=== PATIENT | male | born 1990 | race Caucasian/White ===

== ENCOUNTER 2017-01-11 20:49 | Inpatient (IN) ==
[2017-01-11 21:18] LABS: Basophils % 0.4 %; Eosinophils % 0.1 %; Monocytes % 4.1 %; Segmented Neutrophils % 87.9 %
[2017-01-11 21:19] LABS: Basophils # 0.2 K/mcL (0.0-0.2); Eosinophils # 0.1 K/mcL (0.0-0.6); Hematocrit 47.7 % (37.5-50.1); Hemoglobin 15.5 g/dL (12.9-16.9); Immature Granulocytes % 2.3 % (0-4); Lymphocytes # 2.7 K/mcL (0.6-4.6); Lymphocytes % 5.2 %; Mean Corpuscular HGB Conc 32.5 g/dL (31.6-35.5); Mean Corpuscular Hemoglobin 29.9 pg (28.0-33.3); Mean Corpuscular Volume 91.9 fL (83.0-100.0); Mean Platelet Volume 11.4 fL (9.4-12.4); Platelet Count 344 K/mcL (140-400); Red Blood Count 5.19 M/mcL (4.19-5.50); Red Cell Distribution Width 13.8 % (11.5-14.5)
[2017-01-11] MEDS ORDERED: 0.9 % Sodium Chloride 1,000 ML IVC ONE (21:22)
[2017-01-11 21:34] LABS: Alanine Aminotransferase 32 Units/L (0-55); Albumin 4.4 g/dL (3.5-5.0); Alkaline Phosphatase 73 Units/L (38-126); Aspartate Amino Transferase 25 Units/L (5-34); BUN/Creatinine Ratio 10 (6-26); Bilirubin,Direct 0.1 mg/dL (0.0-0.5); Bilirubin,Indirect 0.1 mg/dL (0.0-1.2); Bilirubin,Total 0.2 mg/dL (0.2-1.2); Blood Urea Nitrogen 19 mg/dL (8-26); Calcium 8.9 mg/dL (8.6-10.8); Carbon Dioxide 19 mEq/L (19-29); Chloride 100 mEq/L (98-109); Globulin 4.5 g/dL (2.4-3.5); Glucose 304 mg/dL (70-99); Osmolality,Calculated 304 (280-300); Potassium 4.3 mEq/L (3.5-4.5); Sodium 140 mEq/L (136-145); Total Protein 8.9 g/dL (6.0-8.3); eGFR For African Americans 52 (> 60); eGFR For Non-African Americans 43 (> 60)
[2017-01-11 21:35] LABS: Acetaminophen < 1.0 mcg/mL (10-30); Ethanol < 10 mg/dL (0-10); Monocytes # 2.1 K/mcL (0.0-1.3); Salicylate < 5.0 mg/dL (15-30)
--- NOTE | 2017-01-11 21:44 | Emergency Department Note ---
Overdose - Medical Records Medical records reviewed: Yes I reviewed the patient's medical records. - Lab Data Lab results reviewed: Yes I reviewed the patient's lab results. Result diagrams: 01/13/17 07:37 01/13/17 07:37 Lab Results 01/11/17 01/11/17 01/11/17 Range/Units 21:08 21:08 21:08 WBC 52.3 H* (4.3-11.1) K/mcL RBC 5.19 (4.19-5.50) M/mcL Hgb 15.5 (12.9-16.9) g/dL Hct 47.7 (37.5-50.1) % MCV 91.9 (83.0-100.0) fL MCH 29.9 (28.0-33.3) pg MCHC 32.5 (31.6-35.5) g/dL RDW 13.8 (11.5-14.5) % Plt Count 344 (140-400) K/mcL MPV 11.4 (9.4-12.4) fL Immature Gran % 2.3 (0-4) % Seg Neutrophils % 87.9 % Lymphocytes % 5.2 % Monocytes % 4.1 % Eosinophils % 0.1 % Basophils % 0.4 % Neutrophils # 46.0 H (1.6-8.9) K/mcL Lymphocytes # 2.7 (0.6-4.6) K/mcL Monocytes # 2.1 H (0.0-1.3) K/mcL Eosinophils # 0.1 (0.0-0.6) K/mcL Basophils # 0.2 (0.0-0.2) K/mcL Platelet Estimate (Normal) PT (9.4-12.1) Seconds INR APTT (26.0-36.0) Seconds Sodium 140 (136-145) mEq/L Potassium 4.3 (3.5-4.5) mEq/L Chloride 100 (98-109) mEq/L Carbon Dioxide 19 (19-29) mEq/L BUN 19 (8-26) mg/dL Creatinine 1.87 H (0.72-1.25) mg/dL Est GFR ( Amer) 52 L (> 60) Est GFR (Non-Af Amer) 43 L (> 60) BUN/Creatinine Ratio 10 (6-26) Glucose 304 H (70-99) mg/dL POC Glucose (58-89) Calculated Osmolality 304 H (280-300) Lactic Acid (0.5-2.2) mmol/L Calcium 8.9 (8.6-10.8) mg/dL Magnesium (1.6-2.6) mg/dL Total Bilirubin 0.2 (0.2-1.2) mg/dL Direct Bilirubin 0.1 (0.0-0.5) mg/dL Indirect Bilirubin 0.1 (0.0-1.2) mg/dL AST 25 (5-34) Units/L ALT 32 (0-55) Units/L Alkaline Phosphatase 73 (38-126) Units/L Creatine Kinase (30-200) Units/L Troponin I 0.10 H* (0-0.03) ng/mL Serum Total Protein 8.9 H (6.0-8.3) g/dL Albumin 4.4 (3.5-5.0) g/dL Globulin 4.5 H (2.4-3.5) g/dL Albumin/Globulin Ratio 1.0 L (1.1-2.2) Triglycerides (< 150) mg/dL Cholesterol (< 200) mg/dL LDL Cholesterol, Calc (0-99) mg/dL VLDL Cholesterol, Calc (< 31) mg/dL HDL Cholesterol (40-59) mg/dL Cholesterol/HDL Ratio (0-4.9) Urine Color (Yellow) Urine Clarity (Clear) Urine pH (5.0-8.0) pH Units Ur Specific Epes (1.010-1.025) Urine Protein (Neg-Trace) mg/dL Urine Glucose (UA) (Normal) mg/dL Urine Ketones (Negative) mg/dL Urine Blood (Negative) Urine Nitrite (Negative) Urine Bilirubin (Negative) Urine Urobilinogen (Normal) mg/dL Ur Leukocyte Esterase (Negative) Salicylates < 5.0 L (15-30) mg/dL Urine Opiates Screen (Tcncmn=234) ng/mL Acetaminophen < 1.0 L (10-30) mcg/mL Ur Barbiturates Screen (Rkssam=944) ng/mL Ur Phencyclidine Scrn (Cutoff=25) ng/mL Ur Amphetamines Screen (Llfjyd=3356) ng/mL U Benzodiazepines Scrn (Xicszs=935) ng/mL Urine Cocaine Screen (Cutoff= 300) ng/mL U Marijuana (THC) Screen (Cutoff = 50) ng/mL Ethyl Alcohol < 10 (0-10) mg/dL 01/11/17 01/11/17 01/11/17 Range/Units 21:08 21:35 21:54 WBC (4.3-11.1) K/mcL RBC (4.19-5.50) M/mcL Hgb (12.9-16.9) g/dL Hct (37.5-50.1) % MCV (83.0-100.0) fL MCH (28.0-33.3) pg MCHC (31.6-35.5) g/dL RDW (11.5-14.5) % Plt Count (140-400) K/mcL MPV (9.4-12.4) fL Immature Gran % (0-4) % Seg Neutrophils % % Lymphocytes % % Monocytes % % Eosinophils % % Basophils % % Neutrophils # (1.6-8.9) K/mcL Lymphocytes # (0.6-4.6) K/mcL Monocytes # (0.0-1.3) K/mcL Eosinophils # (0.0-0.6) K/mcL Basophils # (0.0-0.2) K/mcL Platelet Estimate (Normal) PT (9.4-12.1) Seconds INR APTT (26.0-36.0) Seconds Sodium (136-145) mEq/L Potassium (3.5-4.5) mEq/L Chloride (98-109) mEq/L Carbon Dioxide (19-29) mEq/L BUN (8-26) mg/dL Creatinine (0.72-1.25) mg/dL Est GFR ( Amer) (> 60) Est GFR (Non-Af Amer) (> 60) BUN/Creatinine Ratio (6-26) Glucose (70-99) mg/dL POC Glucose 238 H 178 H (58-89) Calculated Osmolality (280-300) Lactic Acid (0.5-2.2) mmol/L Calcium (8.6-10.8) mg/dL Magnesium (1.6-2.6) mg/dL Total Bilirubin (0.2-1.2) mg/dL Direct Bilirubin (0.0-0.5) mg/dL Indirect Bilirubin (0.0-1.2) mg/dL AST (5-34) Units/L ALT (0-55) Units/L Alkaline Phosphatase (38-126) Units/L Creatine Kinase 129 (30-200) Units/L Troponin I (0-0.03) ng/mL Serum Total Protein (6.0-8.3) g/dL Albumin (3.5-5.0) g/dL Globulin (2.4-3.5) g/dL Albumin/Globulin Ratio (1.1-2.2) Triglycerides (< 150) mg/dL Cholesterol (< 200) mg/dL LDL Cholesterol, Calc (0-99) mg/dL VLDL Cholesterol, Calc (< 31) mg/dL HDL Cholesterol (40-59) mg/dL Cholesterol/HDL Ratio (0-4.9) Urine Color (Yellow) Urine Clarity (Clear) Urine pH (5.0-8.0) pH Units Ur Specific Epes (1.010-1.025) Urine Protein (Neg-Trace) mg/dL Urine Glucose (UA) (Normal) mg/dL Urine Ketones (Negative) mg/dL Urine Blood (Negative) Urine Nitrite (Negative) Urine Bilirubin (Negative) Urine Urobilinogen (Normal) mg/dL Ur Leukocyte Esterase (Negative) Salicylates (15-30) mg/dL Urine Opiates Screen (Yfoghi=559) ng/mL Acetaminophen (10-30) mcg/mL Ur Barbiturates Screen (Aicgqn=517) ng/mL Ur Phencyclidine Scrn (Cutoff=25) ng/mL Ur Amphetamines Screen (Ztzyot=2567) ng/mL U Benzodiazepines Scrn (Xtzpsj=361) ng/mL Urine Cocaine Screen (Cutoff= 300) ng/mL U Marijuana (THC) Screen (Cutoff = 50) ng/mL Ethyl Alcohol (0-10) mg/dL 01/11/17 01/11/17 01/11/17 Range/Units 22:43 23:09 23:13 WBC (4.3-11.1) K/mcL RBC (4.19-5.50) M/mcL Hgb (12.9-16.9) g/dL Hct (37.5-50.1) % MCV (83.0-100.0) fL MCH (28.0-33.3) pg MCHC (31.6-35.5) g/dL RDW (11.5-14.5) % Plt Count (140-400) K/mcL MPV (9.4-12.4) fL Immature Gran % (0-4) % Seg Neutrophils % % Lymphocytes % % Monocytes % % Eosinophils % % Basophils % % Neutrophils # (1.6-8.9) K/mcL Lymphocytes # (0.6-4.6) K/mcL Monocytes # (0.0-1.3) K/mcL Eosinophils # (0.0-0.6) K/mcL Basophils # (0.0-0.2) K/mcL Platelet Estimate (Normal) PT (9.4-12.1) Seconds INR APTT (26.0-36.0) Seconds Sodium (136-145) mEq/L Potassium (3.5-4.5) mEq/L Chloride (98-109) mEq/L Carbon Dioxide (19-29) mEq/L BUN (8-26) mg/dL Creatinine (0.72-1.25) mg/dL Est GFR ( Amer) (> 60) Est GFR (Non-Af Amer) (> 60) BUN/Creatinine Ratio (6-26) Glucose (70-99) mg/dL POC Glucose 125 H 113 H (58-89) Calculated Osmolality (280-300) Lactic Acid 3.4 H (0.5-2.2) mmol/L Calcium (8.6-10.8) mg/dL Magnesium (1.6-2.6) mg/dL Total Bilirubin (0.2-1.2) mg/dL Direct Bilirubin (0.0-0.5) mg/dL Indirect Bilirubin (0.0-1.2) mg/dL AST (5-34) Units/L ALT (0-55) Units/L Alkaline Phosphatase (38-126) Units/L Creatine Kinase (30-200) Units/L Troponin I (0-0.03) ng/mL Serum Total Protein (6.0-8.3) g/dL Albumin (3.5-5.0) g/dL Globulin (2.4-3.5) g/dL Albumin/Globulin Ratio (1.1-2.2) Triglycerides (< 150) mg/dL Cholesterol (< 200) mg/dL LDL Cholesterol, Calc (0-99) mg/dL VLDL Cholesterol, Calc (< 31) mg/dL HDL Cholesterol (40-59) mg/dL Cholesterol/HDL Ratio (0-4.9) Urine Color (Yellow) Urine Clarity (Clear) Urine pH (5.0-8.0) pH Units Ur Specific Epes (1.010-1.025) Urine Protein (Neg-Trace) mg/dL Urine Glucose (UA) (Normal) mg/dL Urine Ketones (Negative) mg/dL Urine Blood (Negative) Urine Nitrite (Negative) Urine Bilirubin (Negative) Urine Urobilinogen (Normal) mg/dL Ur Leukocyte Esterase (Negative) Salicylates (15-30) mg/dL Urine Opiates Screen (Zgseul=287) ng/mL Acetaminophen (10-30) mcg/mL Ur Barbiturates Screen (Gaetlk=124) ng/mL Ur Phencyclidine Scrn (Cutoff=25) ng/mL Ur Amphetamines Screen (Gnfsvx=9949) ng/mL U Benzodiazepines Scrn (Yxrtcg=787) ng/mL Urine Cocaine Screen (Cutoff= 300) ng/mL U Marijuana (THC) Screen (Cutoff = 50) ng/mL Ethyl Alcohol (0-10) mg/dL 01/12/17 01/12/17 01/12/17 Range/Units 03:12 03:12 03:12 WBC 25.9 H D (4.3-11.1) K/mcL RBC 4.83 (4.19-5.50) M/mcL Hgb 14.1 (12.9-16.9) g/dL Hct 43.2 (37.5-50.1) % MCV 89.4 (83.0-100.0) fL MCH 29.2 (28.0-33.3) pg MCHC 32.6 (31.6-35.5) g/dL RDW 13.6 (11.5-14.5) % Plt Count 311 (140-400) K/mcL MPV 11.5 (9.4-12.4) fL Immature Gran % 0.6 (0-4) % Seg Neutrophils % 85.1 % Lymphocytes % 6.4 % Monocytes % 7.7 % Eosinophils % 0.0 % Basophils % 0.2 % Neutrophils # 22.0 H (1.6-8.9) K/mcL Lymphocytes # 1.7 (0.6-4.6) K/mcL Monocytes # 2.0 H (0.0-1.3) K/mcL Eosinophils # 0.0 (0.0-0.6) K/mcL Basophils # 0.1 (0.0-0.2) K/mcL Platelet Estimate Normal (Normal) PT (9.4-12.1) Seconds INR APTT (26.0-36.0) Seconds Sodium (136-145) mEq/L Potassium (3.5-4.5) mEq/L Chloride (98-109) mEq/L Carbon Dioxide (19-29) mEq/L BUN (8-26) mg/dL Creatinine (0.72-1.25) mg/dL Est GFR ( Amer) (> 60) Est GFR (Non-Af Amer) (> 60) BUN/Creatinine Ratio (6-26) Glucose (70-99) mg/dL POC Glucose (58-89) Calculated Osmolality (280-300) Lactic Acid 1.5 (0.5-2.2) mmol/L Calcium (8.6-10.8) mg/dL Magnesium (1.6-2.6) mg/dL Total Bilirubin (0.2-1.2) mg/dL Direct Bilirubin (0.0-0.5) mg/dL Indirect Bilirubin (0.0-1.2) mg/dL AST (5-34) Units/L ALT (0-55) Units/L Alkaline Phosphatase (38-126) Units/L Creatine Kinase (30-200) Units/L Troponin I 0.70 H* (0-0.03) ng/mL Serum Total Protein (6.0-8.3) g/dL Albumin (3.5-5.0) g/dL Globulin (2.4-3.5) g/dL Albumin/Globulin Ratio (1.1-2.2) Triglycerides (< 150) mg/dL Cholesterol (< 200) mg/dL LDL Cholesterol, Calc (0-99) mg/dL VLDL Cholesterol, Calc (< 31) mg/dL HDL Cholesterol (40-59) mg/dL Cholesterol/HDL Ratio (0-4.9) Urine Color (Yellow) Urine Clarity (Clear) Urine pH (5.0-8.0) pH Units Ur Specific Epes (1.010-1.025) Urine Protein (Neg-Trace) mg/dL Urine Glucose (UA) (Normal) mg/dL Urine Ketones (Negative) mg/dL Urine Blood (Negative) Urine Nitrite (Negative) Urine Bilirubin (Negative) Urine Urobilinogen (Normal) mg/dL Ur Leukocyte Esterase (Negative) Salicylates (15-30) mg/dL Urine Opiates Screen (Scluhb=633) ng/mL Acetaminophen (10-30) mcg/mL Ur Barbiturates Screen (Cwxfkf=395) ng/mL Ur Phencyclidine Scrn (Cutoff=25) ng/mL Ur Amphetamines Screen (Ykkzar=7172) ng/mL U Benzodiazepines Scrn (Dfhyem=468) ng/mL Urine Cocaine Screen (Cutoff= 300) ng/mL U Marijuana (THC) Screen (Cutoff = 50) ng/mL Ethyl Alcohol (0-10) mg/dL 01/12/17 01/12/17 01/12/17 Range/Units 03:12 03:12 07:01 WBC (4.3-11.1) K/mcL RBC (4.19-5.50) M/mcL Hgb (12.9-16.9) g/dL Hct (37.5-50.1) % MCV (83.0-100.0) fL MCH (28.0-33.3) pg MCHC (31.6-35.5) g/dL RDW (11.5-14.5) % Plt Count (140-400) K/mcL MPV (9.4-12.4) fL Immature Gran % (0-4) % Seg Neutrophils % % Lymphocytes % % Monocytes % % Eosinophils % % Basophils % % Neutrophils # (1.6-8.9) K/mcL Lymphocytes # (0.6-4.6) K/mcL Monocytes # (0.0-1.3) K/mcL Eosinophils # (0.0-0.6) K/mcL Basophils # (0.0-0.2) K/mcL Platelet Estimate (Normal) PT 12.3 H (9.4-12.1) Seconds INR 1.1 APTT 26.6 (26.0-36.0) Seconds Sodium 135 L (136-145) mEq/L Potassium 4.8 H (3.5-4.5) mEq/L Chloride 101 (98-109) mEq/L Carbon Dioxide 25 (19-29) mEq/L BUN 18 (8-26) mg/dL Creatinine 1.18 (0.72-1.25) mg/dL Est GFR ( Amer) > 60 (> 60) Est GFR (Non-Af Amer) > 60 (> 60) BUN/Creatinine Ratio 15 (6-26) Glucose 96 (70-99) mg/dL POC Glucose (58-89) Calculated Osmolality 282 (280-300) Lactic Acid (0.5-2.2) mmol/L Calcium 8.7 (8.6-10.8) mg/dL Magnesium 1.6 (1.6-2.6) mg/dL Total Bilirubin 0.4 (0.2-1.2) mg/dL Direct Bilirubin (0.0-0.5) mg/dL Indirect Bilirubin (0.0-1.2) mg/dL AST 23 (5-34) Units/L ALT 27 (0-55) Units/L Alkaline Phosphatase 59 (38-126) Units/L Creatine Kinase (30-200) Units/L Troponin I (0-0.03) ng/mL Serum Total Protein 7.9 (6.0-8.3) g/dL Albumin 4.2 (3.5-5.0) g/dL Globulin 3.7 H (2.4-3.5) g/dL Albumin/Globulin Ratio 1.1 (1.1-2.2) Triglycerides 46 (< 150) mg/dL Cholesterol 173 (< 200) mg/dL LDL Cholesterol, Calc 112 H (0-99) mg/dL VLDL Cholesterol, Calc 9 (< 31) mg/dL HDL Cholesterol 52 (40-59) mg/dL Cholesterol/HDL Ratio 3.3 (0-4.9) Urine Color Yellow (Yellow) Urine Clarity Clear (Clear) Urine pH 6.0 (5.0-8.0) pH Units Ur Specific Epes 1.015 (1.010-1.025) Urine Protein Negative (Neg-Trace) mg/dL Urine Glucose (UA) Normal (Normal) mg/dL Urine Ketones Negative (Negative) mg/dL Urine Blood Negative (Negative) Urine Nitrite Negative (Negative) Urine Bilirubin Negative (Negative) Urine Urobilinogen Normal (Normal) mg/dL Ur Leukocyte Esterase Negative (Negative) Salicylates (15-30) mg/dL Urine Opiates Screen (Ddllhb=744) ng/mL Acetaminophen (10-30) mcg/mL Ur Barbiturates Screen (Jxvrlq=488) ng/mL Ur Phencyclidine Scrn (Cutoff=25) ng/mL Ur Amphetamines Screen (Wgeqrt=4388) ng/mL U Benzodiazepines Scrn (Sgkvur=626) ng/mL Urine Cocaine Screen (Cutoff= 300) ng/mL U Marijuana (THC) Screen (Cutoff = 50) ng/mL Ethyl Alcohol (0-10) mg/dL 01/12/17 01/12/17 Range/Units 07:01 08:43 WBC (4.3-11.1) K/mcL RBC (4.19-5.50) M/mcL Hgb (12.9-16.9) g/dL Hct (37.5-50.1) % MCV (83.0-100.0) fL MCH (28.0-33.3) pg MCHC (31.6-35.5) g/dL RDW (11.5-14.5) % Plt Count (140-400) K/mcL MPV (9.4-12.4) fL Immature Gran % (0-4) % Seg Neutrophils % % Lymphocytes % % Monocytes % % Eosinophils % % Basophils % % Neutrophils # (1.6-8.9) K/mcL Lymphocytes # (0.6-4.6) K/mcL Monocytes # (0.0-1.3) K/mcL Eosinophils # (0.0-0.6) K/mcL Basophils # (0.0-0.2) K/mcL Platelet Estimate (Normal) PT (9.4-12.1) Seconds INR APTT (26.0-36.0) Seconds Sodium (136-145) mEq/L Potassium (3.5-4.5) mEq/L Chloride (98-109) mEq/L Carbon Dioxide (19-29) mEq/L BUN (8-26) mg/dL Creatinine (0.72-1.25) mg/dL Est GFR ( Amer) (> 60) Est GFR (Non-Af Amer) (> 60) BUN/Creatinine Ratio (6-26) Glucose (70-99) mg/dL POC Glucose (58-89) Calculated Osmolality (280-300) Lactic Acid (0.5-2.2) mmol/L Calcium (8.6-10.8) mg/dL Magnesium (1.6-2.6) mg/dL Total Bilirubin (0.2-1.2) mg/dL Direct Bilirubin (0.0-0.5) mg/dL Indirect Bilirubin (0.0-1.2) mg/dL AST (5-34) Units/L ALT (0-55) Units/L Alkaline Phosphatase (38-126) Units/L Creatine Kinase (30-200) Units/L Troponin I 1.03 H* (0-0.03) ng/mL Serum Total Protein (6.0-8.3) g/dL Albumin (3.5-5.0) g/dL Globulin (2.4-3.5) g/dL Albumin/Globulin Ratio (1.1-2.2) Triglycerides (< 150) mg/dL Cholesterol (< 200) mg/dL LDL Cholesterol, Calc (0-99) mg/dL VLDL Cholesterol, Calc (< 31) mg/dL HDL Cholesterol (40-59) mg/dL Cholesterol/HDL Ratio (0-4.9) Urine Color (Yellow) Urine Clarity (Clear) Urine pH (5.0-8.0) pH Units Ur Specific Epes (1.010-1.025) Urine Protein (Neg-Trace) mg/dL Urine Glucose (UA) (Normal) mg/dL Urine Ketones (Negative) mg/dL Urine Blood (Negative) Urine Nitrite (Negative) Urine Bilirubin (Negative) Urine Urobilinogen (Normal) mg/dL Ur Leukocyte Esterase (Negative) Salicylates (15-30) mg/dL Urine Opiates Screen Negative (Omvpzm=977) ng/mL Acetaminophen (10-30) mcg/mL Ur Barbiturates Screen Negative (Uywxcp=044) ng/mL Ur Phencyclidine Scrn Negative (Cutoff=25) ng/mL Ur Amphetamines Screen Negative (Aewkbe=3650) ng/mL U Benzodiazepines Scrn Negative (Gwgwyr=313) ng/mL Urine Cocaine Screen Negative (Cutoff= 300) ng/mL U Marijuana (THC) Screen Negative (Cutoff = 50) ng/mL Ethyl Alcohol (0-10) mg/dL - Radiology Data Radiology results reviewed: Yes I reviewed the patient's radiology results. Chest X-Ray 01/11/17 20:55 IMPRESSION: Ill-defined right infrahilar opacity may reflect mild edema, atypical infection, or sequela of aspiration given history of overdose. D/ / Eusebio Dunne MD / Eusebio Dunne MD Interpreting Provider: Eusebio Dunne MD - EKG Data EKG attestation: Yes I reviewed and interpreted this EKG. EKG results narrative: EKG done at 2126 shows sinus tachycardia with a rate of [address] elevation or depression. Inverted T wave in lead 3. Normal axis. Overdose HPI - General Chief Complaint: ED Overdose Stated Complaint: Heroin Overdose Time Seen by Provider: 01/11/17 20:54 Source: EMS Mode of arrival: ambulatory Limitations: no limitations Nursing Notes Reviewed: Yes Vital Signs Reviewed: Yes - History of Present Illness HPI Narrative: Patient is a 26-year-old male who presents to [facility] ED status post overdose on heroin. He was given 4 mg of intranasal Narcan as well as 2 mg IV of Narcan. He presents awake and alert. States this is his second time using. Denies any other medical problems. Patient is having some difficulty with breathing. Has harsh breath sounds bilaterally. Concern for aspiration. Patient denies using any other drugs this evening. Pt Subjective Complaint: accidental overdose Onset (ago): [employer] Intent: accidental Treatments Prior to Arrival: narcan - Related Data Previous Rx's Medication Instructions Recorded Levofloxacin [Levaquin] 750 mg PO DAILY #5 tablet 01/13/17 Meloxicam 15 mg PO DAILY PRN #20 tablet 01/13/17 MetroNIDAZOLE [Flagyl] 500 mg PO TID #17 tablet 01/13/17 Allergies Allergy/AdvReac Type Severity Reaction Status Date / Time Penicillins Allergy See Verified 01/11/17 21:40 Comments All systems ED: reviewed and negative except as stated. Past Medical History - Past Medical History Attestation: Yes The following information was validated with the patient. Source: patient Medical history: Reports: no medical history Psychiatric history: Reports: ADHD - Social History Smoking Status: Light tobacco smoker Smokeless Tobacco Status: No Alcohol use: Reports: occasionally Drug use: Reports: cocaine, opiates Physical Exam - General Limitations: no limitations General appearance: alert - Head Head exam: atraumatic, normocephalic, normal inspection - Eye Eye exam: Present: normal appearance, EOMI, other (Pinpoint pupils, nonreactive) - ENT ENT exam: normal exam, normal oropharynx, mucous membranes moist, other (Had tobacco chew in his mouth) - Neck Neck exam: Present: normal inspection, full ROM, trachea midline - Chest Chest inspection: Present: normal inspection, symmetric chest wall rise - Respiratory Respiratory exam: Present: other (Bilateral rhonchi diffusely) - Cardiovascular Cardiovascular exam: Present: normal rhythm, tachycardia - Abdominal Exam Abdominal exam: Present: soft, Non-Tender. Absent: tenderness, distention, guarding, rebound, rigidity - Extremities Exam Extremities exam: Present: normal inspection, full ROM. Absent: tenderness, pedal edema - Back Exam Back exam: Present: normal inspection, full ROM. Absent: tenderness - Neurological Exam Neurological exam: Present: alert - Psychiatric Psychiatric exam: Present: normal affect, normal mood - Skin Skin exam: Present: warm, dry, intact, normal color Course Course Narrative: Patient seen and examined. Overdose on heroin. Suspect aspiration pneumonitis as well. Oxygen saturations in the 70s on room air. Placed on 2 L nasal cannula which brought him up to the 80s. Then placed on 6 L which brought him up into the 90s. Lab work, chest x-ray ordered. - Reevaluation(s) Reevaluation #1: Patient's lab work shows a critical White blood cell count 50,000, acute renal failure, elevated troponin of 0.10, likely aspiration. Aspirin ordered. We will place him on IV clindamycin. I spoke with hospitalist Dr. Cardoso who has accepted patient for admission. Would like him on 2 N or ICU. He would like a CT of the chest ordered as well. I also spoke with electric arc furnace operator Dr. English who states he believes this is more so from the overdose. Does not feel like this is not an NSTEMI. States cardiology can be consulted if needed. Time: 22:27 Vital Signs Temperature 97.4 F L 01/11/17 20:53 Pulse Rate 144 01/11/17 20:53 Respiratory Rate 20 01/11/17 20:53 Blood Pressure 110/86 01/11/17 20:53 O2 Sat by Pulse Oximetry 82 L 01/11/17 20:53 Temperature 98.8 F 01/13/17 11:02 Pulse Rate 80 01/13/17 11:02 Respiratory Rate 18 01/13/17 11:02 Blood Pressure 121/73 01/13/17 11:02 O2 Sat by Pulse Oximetry 99 01/13/17 11:02 Oxygen Delivery Oxygen Delivery Nasal Cannula Disposition Clinical Impression: Elevated troponin Drug overdose Qualifiers: Encounter type: initial encounter Injury intent: accidental or unintentional Qualified Code(s): T50.901A - Poisoning by unspecified drugs, medicaments and biological substances, accidental (unintentional), initial encounter Leukocytosis Qualifiers: Leukocytosis type: unspecified Qualified Code(s): D72.829 - Elevated white blood cell count, unspecified Acute renal failure Qualifiers: Acute renal failure type: unspecified Qualified Code(s): N17.9 - Acute kidney failure, unspecified Disposition: Admitted As Inpatient Condition: Good Time of Disposition: 22:23 Attestation Statement - Attestation Attestation: I personally interviewed and examined this patient and my medical decision- making was reviewed with the ED Resident Physician, Dr. Banerjee. I agree with the documented findings, disposition and treatment plan as described in the documentation. Agree with the resident's HPI and PE findings as documented. Pt arrived to the ED in resp distress, hypoxia and tachypnea. Pt with GCS=15 on arrival, awake, alert and oriented x 4, but anxious. Pt placed on suppl O2 and initiated care on arrival. Pt reports using heroin tonight, and +LOC. Pt given narcan, and after 2 doses, awoke and was responsive with medics. Pt with gradual improvement in oxygenation during ED course. Pt with profound leukocytosis, and abnormal CXR, suspect aspiration clinically. IV antibx initiated in eD. BP stable throughout ED course. EKG without acute ischemia, but pt with + trop. Discussed with Heavy Threader, who is aware, and feels most likely related to recent drug use, advised admission with serial trops and will follow in consultation. Pt admitted for further eval and tx.
[2017-01-11] MEDS ORDERED: Aspirin 81 MG TAB.CHEW PO STA (21:57)
[2017-01-11] MEDS ORDERED: Clindamycin 600 MG/50 ML 600 MG/50 ML IV.SOLN IVPB STA (22:29)
[2017-01-12] MEDS ORDERED: Naloxone 0.4 MG/ML INJ IVP PRN (01:58)
[2017-01-12] MEDS ORDERED: Acetaminophen 325 MG TABLET PO PRN (01:58)
--- NOTE | 2017-01-12 02:11 | Internal Med History&Physical ---
Date of Encounter: 01/12/17 Time of Encounter: 02:03 Assessment and Plan (1) Drug overdose Current visit: Yes Status: Acute 1. Pt alert and oriented times 3 now and is hemodynamically stable. 2. He uses heroin roughly once every 3 months, and I believe he is truthful. Low risk of withdrawal. 3. Will transfer out of ICU to telemetry floor as he does not need ICU monitoring presently. 4. Counseled patient on the need to abstain from all drugs of abuse. Qualifiers: Encounter type: initial encounter Injury intent: accidental or unintentional Qualified Code(s): T50.901A - Poisoning by unspecified drugs, medicaments and biological substances, accidental (unintentional), initial encounter (2) Lactic acidosis Current visit: Yes Status: Acute 1. I do not suspect sepsis. 2. I suspect this is due to drug overdose. 3. Will hydrate with IVF and trend lactate levels. (3) Acute kidney injury Current visit: Yes Status: Acute 1. Likely due to overdose. 2. IVF and follow renal function. 3. If renal function does not improve, will consult nephrology. (4) Aspiration pneumonia Current visit: Yes Status: Acute 1. Patient is PCN allergic. 2. Will treat with Flagyl and Cipro. 3. Follow clinically and D/C antibiotics as clinical picture dictates. Qualifiers: Aspiration pneumonia type: due to gastric secretions Laterality: right Lung location: middle lobe of lung Qualified Code(s): J69.0 - Pneumonitis due to inhalation of food and vomit (5) Elevated troponin Current visit: Yes Status: Acute 1. Will trend troponins and EKG's. 2. Likely due to overdose. 3. He denies any cocaine use tonight; he has used it/tried it once in the past. 4. No symptoms of angina. (6) DVT prophylaxis Current visit: Yes Status: Acute 1. Heparin SQ. Internal Medicine - H&P: HPI Chief complaint: overdose Admitted From: Emergency Dept Plans for Post Hospital Care: Home History of present illness: Mr. Lynch is a 26 year old male who presented to the ER tonight after an overdose. He received Narcan by EMS and another dose in the ER with successful reversal of his overdose. He was found to have evidence of aspiration, profound leukocytosis, lactic acidosis, troponin elevation, and acute kidney injury. As such, he was admitted to the ICU. I saw patient in the ICU a few hours after arrival. He is hemodynamically stable, alert, oriented 3, he and denies any complaints. He denies any chest pain, shortness of breath, nausea, vomiting, or diarrhea. He admits to using drugs recreationally. He states he only uses heroin about every 3 months and tonight was one of those days he used it. He does not remember any event after snorting heroin until he awoke in the ER tonight. He readily admits that he had "a stupid attack". He was not trying to hurt himself or others. He and his fiancee both overdosed together tonight. He states it was purely unintentional and he was trying to get a "quick fix". I explained to him that he might have sustained some myocardial injury, pneumonia, and kidney injury. He is obviously concerned and wants to "do the right thing." He states he's trying to get his life back in order and already has a job lined up. Given that he is hemodynamically stable and has no untoward consequences thus far, I am moving him out of the ICU to telemetry floor. I explained to him that he will need IV fluids, hemodynamic monitoring, antibiotics, and possible cardiac workup if his troponins continue to climb. He voiced understanding and is agreeable to plan of care. Past Med Surg Social Fam HX - Past Medical History Attestation: Yes The following information was validated with the patient. Source: patient, old records reviewed Medical history: no medical history Psychiatric history: ADHD - Past Surgical History Surgical History: other (surgery for lazy eye as a child) - Social History Smoking Status: Light tobacco smoker Smokeless Tobacco Status: No Alcohol use: occasionally Drug use: cocaine, opiates Current living situation: Home - Independent Activity Level: Independent ambulation Recent Out of Country Travel Within the Last 8 Weeks: No - Family History Mother Living Status: Still Living (Lupus) Father Living Status: Still Living (alive and well) Internal Medicine - H&P: Meds No Known Home Drugs 01/11/17 [History] Allergies Penicillins Allergy (Verified 01/11/17 21:40) See Comments - Constitutional Constitutional: no chills, no fever(s) - EENT Eyes: no blurry vision, no change in vision Ears: no ear pain, no tinnitus Nose, mouth and throat: no nasal congestion, no sinus pain, no sinus pressure, no sore throat - Cardiovascular Cardiovascular ROS IM: syncope (overdose), no chest pain, no dyspnea, no dyspnea on exertion, no palpitations - Respiratory Respiratory: no cough, no dyspnea, no hemoptysis, no wheezing, no pain on inspiration, no chest congestion, no excessive phlegm production, no pain with cough - Gastrointestinal Gastrointestinal: no abdominal pain, no diarrhea, no hematemesis, no hematochezia, no melena, no nausea, no vomiting - Genitourinary Genitourinary ROS male: no dysuria, no flank pain, no hematuria - Musculoskeletal Musculoskeletal ROS IM: back pain (chronic), no arthralgias, no muscle cramps, no myalgias - Integumentary Integumentary IM: no pruritus, no jaundice - Neurological Neurological ROS: no disequilibrium, no dizziness, no focal weakness - Psychiatric Psychiatric: no anxiety, no depression - Endocrine Endocrine IM: no cold intolerance, no heat intolerance - Hematologic/Lymphatic Hematologic/Lymphatic: no easy bruising, no lymphadenopathy - Allergic/Immunologic Allergic/Immunologic: no wheezing, no GI upset with certain foods - Constitutional Vitals: Temp Pulse Resp BP Pulse Ox 98.7 F 106 16 114/75 97 01/11/17 23:05 01/12/17 00:00 01/12/17 00:00 01/12/17 00:00 01/12/17 00:00 General appearance: Present: cooperative, A&O X 3, pleasant, no acute distress, answers questions appropriately Exam: acknowledges he exercised poor judgement - Head Head exam: Present: atraumatic, normal inspection - Expanded Head Exam Head exam expanded: Absent: abrasion, contusion, general tenderness - Eye Eye exam: Present: EOMI, normal appearance, PERRL. Absent: scleral icterus Pupils: Present: normal accommodation - ENT ENT exam: Present: mucous membranes dry, normal exam, normal oropharynx - Neck Neck exam general surgery: Present: full ROM, supple, trachea midline. Absent: lymphadenopathy, tenderness, nuchal rigidity - Respiratory Respiratory exam: Present: rales (faint right basilar crackles). Absent: accessory muscle use, chest wall tenderness, respiratory distress, rhonchi, wheezes - Cardiovascular Cardiovascular exam: Present: RRR, +S1, +S2. Absent: diastolic murmur, systolic murmur - GI/Abdominal GI/Abdominal exam: Present: normal bowel sounds, soft. Absent: guarding, hepatomegaly, mass, rebound, splenomegaly, tenderness - Extremities Exam Extremities exam: Present: full ROM, normal capillary refill, warm. Absent: calf tenderness, joint swelling, pedal edema - Back Exam Back exam: Present: normal inspection. Absent: CVA tenderness (L), CVA tenderness (R) - Neurological Exam Neurological exam: Present: alert, CN II-XII intact, oriented X3, no focal deficits, strengths equal and symetr throughout - Psychiatric Psychiatric exam: Present: normal affect, normal mood. Absent: anxious, depressed, homicidal ideation, suicidal ideation - Skin Skin exam: Present: dry, excoriation (mid-sternum), warm. Absent: rash Internal Med - H&P Results - Labs CBC & Chem 7: 01/11/17 21:08 01/11/17 21:08 - EKG Data -: EKG Interpreted by Myself EKG shows normal: sinus rhythm Rate: tachycardia (sinus tachycardia) - Diagnostic Studies Chest x-ray Status: image reviewed by me (RMl infiltrate)
[2017-01-12] MEDS: *HR* Heparin 5,000 UNIT/ML VIAL SQ SCH ×4 (02:14→21:40)
[2017-01-12] MEDS: 0.9 % Sodium Chloride 1,000 ML IVC SCH ×3 (02:15→16:51)
[2017-01-12 03:37] LABS: Basophils % 0.2 %
[2017-01-12 03:39] LABS: Hematocrit 43.2 % (37.5-50.1); Hemoglobin 14.1 g/dL (12.9-16.9); Immature Granulocytes % 0.6 % (0-4); Lymphocytes # 1.7 K/mcL (0.6-4.6); Lymphocytes % 6.4 %; Mean Corpuscular HGB Conc 32.6 g/dL (31.6-35.5); Mean Corpuscular Hemoglobin 29.2 pg (28.0-33.3); Mean Corpuscular Volume 89.4 fL (83.0-100.0); Mean Platelet Volume 11.5 fL (9.4-12.4); Monocytes % 7.7 %; Platelet Count 311 K/mcL (140-400); Red Blood Count 4.83 M/mcL (4.19-5.50); Red Cell Distribution Width 13.6 % (11.5-14.5); Segmented Neutrophils % 85.1 %
[2017-01-12 03:42] LABS: Basophils # 0.1 K/mcL (0.0-0.2); INR 1.1; Prothrombin Time 12.3 Seconds (9.4-12.1)
[2017-01-12 03:45] LABS: Activated Partial Thrombo Time 26.6 Seconds (26.0-36.0)
[2017-01-12 03:53] LABS: Alanine Aminotransferase 27 Units/L (0-55); Albumin 4.2 g/dL (3.5-5.0); Albumin/Globulin Ratio 1.1 (1.1-2.2); Alkaline Phosphatase 59 Units/L (38-126); Aspartate Amino Transferase 23 Units/L (5-34); BUN/Creatinine Ratio 15 (6-26); Bilirubin,Total 0.4 mg/dL (0.2-1.2); Blood Urea Nitrogen 18 mg/dL (8-26); Calcium 8.7 mg/dL (8.6-10.8); Carbon Dioxide 25 mEq/L (19-29); Chloride 101 mEq/L (98-109); Chol/HDL Ratio 3.3 (0-4.9); Cholesterol 173 mg/dL (< 200); Globulin 3.7 g/dL (2.4-3.5); Glucose 96 mg/dL (70-99); HDL Cholesterol 52 mg/dL (40-59); LDL Cholesterol,Calculated 112 mg/dL (0-99); Magnesium 1.6 mg/dL (1.6-2.6); Osmolality,Calculated 282 (280-300); Potassium 4.8 mEq/L (3.5-4.5); Sodium 135 mEq/L (136-145); Total Protein 7.9 g/dL (6.0-8.3); Triglycerides 46 mg/dL (< 150); eGFR For African Americans > 60 (> 60); eGFR For Non-African Americans > 60 (> 60)
[2017-01-12 03:57] LABS: Platelet Estimate Normal (Normal)
[2017-01-12 07:14] LABS: Bilirubin,Urine Negative (Negative); Blood,Urine Negative (Negative); Clarity,Urine Clear (Clear); Color,Urine Yellow (Yellow); Glucose,Urine (UA) Normal (Normal); Ketones,Urine Negative (Negative); Leukocyte Esterase,Urine Negative (Negative); Nitrite,Urine Negative (Negative); Protein,Urine Negative (Neg-Trace); Specific Gravity,Urine 1.015 (1.010-1.025); Urobilinogen,Urine Normal (Normal)
[2017-01-12 07:21] LABS: Amphetamine Screen,Urine Negative ng/mL (Cutoff=1000); Barbiturate Screen,Urine Negative ng/mL (Cutoff=200); Benzodiazepines Screen,Urine Negative ng/mL (Cutoff=200); Cannabinoid Screen,Urine Negative ng/mL (Cutoff = 50); Cocaine Screen,Urine Negative ng/mL (Cutoff= 300); Opiate Screen,Urine Negative ng/mL (Cutoff=300); Phencyclidine Screen,Urine Negative ng/mL (Cutoff=25)
[2017-01-12] MEDS: MetroNIDAZOLE 500 MG/100 ML 500 MG/100 ML BAG IVPB SCH ×3 (08:43→23:52)
--- NOTE | 2017-01-12 09:43 | Internal Med Progress Note ---
Date of Encounter: 01/12/17 Time of Encounter: 09:41 - Assessment and plan (1) Sepsis Current Visit: Yes Status: Acute Assessment and plan: Sepsis secondary to aspiration pneumonia Episode count of 52 and heart rate 109 Allergic to penicillin, continue ciprofloxacin and Flagyl IV Aspiration precautions Qualifiers: Sepsis type: sepsis due to unspecified organism Qualified Code(s): A41.9 - Sepsis, unspecified organism (2) Drug overdose Current Visit: Yes Status: Acute Assessment and plan: Heroine overdose Recurrent radiation, encouraged to stop using Qualifiers: Encounter type: initial encounter Injury intent: accidental or unintentional Qualified Code(s): T50.901A - Poisoning by unspecified drugs, medicaments and biological substances, accidental (unintentional), initial encounter (3) Acute renal failure Current Visit: Yes Status: Acute Qualifiers: Acute renal failure type: unspecified Qualified Code(s): N17.9 - Acute kidney failure, unspecified (4) Elevated troponin Current Visit: Yes Status: Acute Assessment and plan: Likely secondary to demand ischemia from severe drug overdose Unclear whether the patient received chest compressions or not Troponin is progressively increasing from 0.1, 0.7 up to 1.03, chest pain is pleuritic Start aspirin Consider calling cardiology, check EKG (5) Lactic acidosis Current Visit: Yes Status: Acute Assessment and plan: Likely from overdose (6) Aspiration pneumonia Current Visit: Yes Status: Acute Qualifiers: Aspiration pneumonia type: due to gastric secretions Laterality: right Lung location: middle lobe of lung Qualified Code(s): J69.0 - Pneumonitis due to inhalation of food and vomit (7) Leukocytosis Current Visit: Yes Status: Acute Qualifiers: Leukocytosis type: unspecified Qualified Code(s): D72.829 - Elevated white blood cell count, unspecified - Subjective Interval history: Not for billing purposes Complains of pleuritic midsternal chest pain and has a bruise in the midsternal area - Constitutional Vitals: Temp Pulse Resp BP Pulse Ox 98.5 F 91 16 102/52 95 01/12/17 06:49 01/12/17 06:49 01/12/17 06:49 01/12/17 06:49 01/12/17 06:49 General appearance: Present: cooperative, A&O X 3, pleasant, no acute distress, answers questions appropriately Internal Medicine: Result - Labs CBC & Chem 7: 01/12/17 03:12 01/12/17 03:12 Labs: Short CBC 01/12/17 Range/Units 03:12 WBC 25.9 H D (4.3-11.1) K/mcL Hgb 14.1 (12.9-16.9) g/dL Hct 43.2 (37.5-50.1) % Plt Count 311 (140-400) K/mcL Neutrophils # 22.0 H (1.6-8.9) K/mcL BMP 01/12/17 03:12 Sodium 135 L Potassium 4.8 H Chloride 101 Carbon Dioxide 25 BUN 18 Creatinine 1.18 Glucose 96 Calcium 8.7 Cardiac Enzymes 01/12/17 01/12/17 Range/Units 03:12 08:43 Troponin I 0.70 H* 1.03 H* (0-0.03) ng/mL Liver Function 01/12/17 Range/Units 03:12 Total Bilirubin 0.4 (0.2-1.2) mg/dL AST 23 (5-34) Units/L ALT 27 (0-55) Units/L Alkaline Phosphatase 59 (38-126) Units/L Albumin 4.2 (3.5-5.0) g/dL Urine 01/12/17 Range/Units 07:01 Urine Color Yellow (Yellow) Urine Clarity Clear (Clear) Urine pH 6.0 (5.0-8.0) pH Units Ur Specific [place] 1.015 (1.010-1.025) Urine Protein Negative (Neg-Trace) mg/dL Urine Glucose (UA) Normal (Normal) mg/dL - ABG Interpretation ABG results: PT/INR, D-dimer PT 12.3 Seconds (9.4-12.1) H 01/12/17 03:12 Consult Discharge Plan - Plan Referrals: NO,PCP [Primary Care Provider] -
[2017-01-13] MEDS: 0.9 % Sodium Chloride 1,000 ML IVC SCH (03:24)
[2017-01-13] MEDS: *HR* Heparin 5,000 UNIT/ML VIAL SQ SCH (05:54)
[2017-01-13] MEDS: MetroNIDAZOLE 500 MG/100 ML 500 MG/100 ML BAG IVPB SCH (07:26)
[2017-01-13 08:09] LABS: Hematocrit 37.8 % (37.5-50.1); Hemoglobin 12.7 g/dL (12.9-16.9); Mean Corpuscular HGB Conc 33.6 g/dL (31.6-35.5); Mean Corpuscular Volume 89.2 fL (83.0-100.0); Mean Platelet Volume 11.9 fL (9.4-12.4); Platelet Count 246 K/mcL (140-400); Red Blood Count 4.24 M/mcL (4.19-5.50); Red Cell Distribution Width 13.9 % (11.5-14.5)
[2017-01-13 08:29] LABS: BUN/Creatinine Ratio 7 (6-26); Blood Urea Nitrogen 8 mg/dL (8-26); Calcium 8.6 mg/dL (8.6-10.8); Carbon Dioxide 27 mEq/L (19-29); Chloride 106 mEq/L (98-109); Glucose 94 mg/dL (70-99); Osmolality,Calculated 288 (280-300); Sodium 140 mEq/L (136-145); eGFR For African Americans > 60 (> 60); eGFR For Non-African Americans > 60 (> 60)
--- NOTE | 2017-01-13 08:56 | Discharge Summary ---
Date of Encounter: 01/13/17 Time of Encounter: 08:52 - Discharge Diagnosis (1) Sepsis Priority: Primary Status: Acute Comments: Sepsis secondary to aspiration pneumonia Qualifiers: Sepsis type: sepsis due to unspecified organism Qualified Code(s): A41.9 - Sepsis, unspecified organism (2) Drug overdose Priority: Primary Status: Acute Comments: Heroin overdose Qualifiers: Encounter type: initial encounter Injury intent: accidental or unintentional Qualified Code(s): T50.901A - Poisoning by unspecified drugs, medicaments and biological substances, accidental (unintentional), initial encounter (3) Acute renal failure Priority: Secondary Status: Acute Qualifiers: Acute renal failure type: unspecified Qualified Code(s): N17.9 - Acute kidney failure, unspecified (4) Elevated troponin Priority: Secondary Status: Acute Comments: Likely secondary to demand ischemia from severe drug overdose (5) Lactic acidosis Priority: Secondary Status: Acute (6) Aspiration pneumonia Priority: Primary Status: Acute Qualifiers: Aspiration pneumonia type: due to gastric secretions Laterality: right Lung location: middle lobe of lung Qualified Code(s): J69.0 - Pneumonitis due to inhalation of food and vomit (7) Leukocytosis Priority: Secondary Status: Acute Qualifiers: Leukocytosis type: unspecified Qualified Code(s): D72.829 - Elevated white blood cell count, unspecified - Discharge Medications Prescriptions: Levofloxacin [Levaquin] 750 mg PO DAILY #5 tablet Meloxicam 15 mg PO DAILY PRN #20 tablet PRN Reason: pain MetroNIDAZOLE [Flagyl] 500 mg PO TID #17 tablet Home Medications: Levofloxacin [Levaquin] 750 mg PO DAILY #5 tablet 01/13/17 [Rx] Meloxicam 15 mg PO DAILY PRN #20 tablet 01/13/17 [Rx] MetroNIDAZOLE [Flagyl] 500 mg PO TID #17 tablet 01/13/17 [Rx] Allergies/Adverse Reactions: Allergies Penicillins Allergy (Verified 01/11/17 21:40) See Comments Date of admission: 01/12/17 09:42 Primary care physician: PCP NO - Patient Status Disposition: Home, Self-Care Condition: Good Overall status at discharge: patient is back to baseline - Discharge Instructions Follow Up With: NO,PCP [Primary Care Provider] - Additional Instructions: Follow with primary care physician within the next 7 days. Complete 5 more days of Levaquin and Flagyl. Avoid opioids - Diet and Activity Diet: regular diet Hospital course: Mr. Lynch is a 26 year old male with history of drug abuse who presented to the ER after an overdose. He received Narcan by EMS and another dose in the ER with successful reversal of his overdose. He was found to have evidence of aspiration, profound leukocytosis, lactic acidosis, troponin elevation, and acute kidney injury. U. He admits to using drugs recreationally. He stated he only uses heroin every 3 months. He does not remember any event after snorting heroin until he awoke in the ER tonight. He readily admits that he had "a stupid attack". He was not trying to hurt himself or others. He and his fiancee both overdosed together . He states it was purely unintentional and he was trying to get a "quick fix" To his back pain. CT scan of the chest showed multifocal patchy opacities mainly in the right middle lobe consistent with atypical multifocal pneumonia versus aspiration pneumonia His troponins were increased at a peak of 1.03 which came down to 0.7. It is unknown whether he received chest compressions but has a laceration on his mid sternal area where he says he was "injected with Narcan"Although he does not remember his episode . his creatinine was 1.87 and after administration of IV fluids has come down to 1.11. The patient feels much better. Patient was started on ciprofloxacin and Flagyl IV as he was severely allergic to penicillin. His white blood cell count was 52 and has come down to 16. He is a stable to be released and is requesting to be discharged. - Time Spent with Patient Total time spent providing and/or coordinating discharge services: Greater than 30 minutes (40 min) - Constitutional Vitals: Temp Pulse Resp BP Pulse Ox 98.5 F 87 18 107/59 98 01/13/17 07:00 01/13/17 07:00 01/13/17 07:00 01/13/17 07:00 01/13/17 07:00 General appearance: Present: cooperative, A&O X 3, pleasant, no acute distress, answers questions appropriately - Head Head exam: Present: atraumatic, normocephalic - Eye Eye exam: Present: PERRL, conjuntiva pink, sclera anicteric Pupils: Present: PERRL - Neck Neck exam general surgery: Present: supple, trachea midline. Absent: lymphadenopathy - Respiratory Respiratory exam: Present: CTAB, rales (left fine basilar crackles). Absent: accessory muscle use, rhonchi, wheezes - Cardiovascular Cardiovascular exam: Present: RRR, +S1, +S2. Absent: diastolic murmur, gallop, rubs, systolic murmur - GI/Abdominal GI/Abdominal exam: Present: normal bowel sounds, soft, no peritoneal signs. Absent: distended, tenderness - Extremities Exam Extremities exam: Present: warm, radial pulses palpable and symetrical. Absent : calf tenderness, cyanotic, pedal edema - Neurological Exam Neurological exam: Present: CN II-XII intact, oriented X3, no focal deficits. Absent: pronater drift, facial droop, speech deficit - Skin Skin exam: Present: dry. Absent: intact (midsternal abrasion 2x3 cm)
[2017-01-13] MEDS ORDERED: Levofloxacin 750 MG/150 ML 750 MG/150 ML BAG IVPB SCH (09:00)
--- NOTE | 2017-01-13 10:54 | ECHO - Doppler Report ---
Echocardiogram Name: Dc yLnch Date of Study: 01/12/2017 Date: 1990 Ht: 66.0 in Medical Record#: [id number] Age: 26 Wt: 173.0 lb Gender: Male BSA: 1.88 Order #: [id number] Location: [facility] Room #: 2NE25 Reading Physician: Elma Larson DO Press Secretary: Patience Hou RVT, [facility] Ordering Physician: Luis Ramos MD Primary Physician: None Indications: Elevated trops Impressions: LVEF 60%. Normal left ventricular size and systolic function. Normal diastolic function of the left ventricle. Normal right ventricular size and function. No significant valvular dysfunction. No pulmonary hypertension. Left Ventricular Wall Motion: Rest Echo Findings All wall segments showed normal motion. Findings: Study Quality * Technically adequate exam. ECG Findings * Normal sinus rhythm. Left Ventricle * LVEF 60%. * Normal LV chamber size, wall thickness and function. * Normal left ventricular diastolic function. Left Atrium * Normal left atrial size. Mitral Valve * Normal mitral valve structure. * No mitral stenosis. * Trace mitral regurgitation. Aortic Valve * No aortic regurgitation. * Aortic valve not well visualized. * No aortic stenosis. Tricuspid Valve * Tricuspid valve not well visualized. * Trace tricuspid regurgitation. * Estimated RA pressure is 3 mmHg. * Estimated RVSP is 26 mmHg. * No pulmonary hypertension. Pulmonic Valve * Pulmonic valve is not well visualized. * No pulmonic stenosis. * No pulmonic regurgitation. Pulmonary Artery * Pulmonary artery not well visualized. Right Ventricle * Normal right ventricular structure and function. Right Atrium * Normal right atrial size. Interatrial Septum * No evidence of PFO by color Doppler. Pericardium * There is no pericardial effusion present. IVC * Normal IVC dimensions and inspiratory collapse. Aorta * Normally sized aortic root. History Measurements: BP: 114/ 63 2D Normal Values IVSd: 1.10 cm 0.6 - 1.0 cm LVIDd: 4.40 cm 3.7 - 5.6 cm LVPWd: 1.10 cm 0.6 - 1.1 cm LVIDs: 3.40 cm 1.5 - 3.6 cm AO: 2.40 cm < 4.0 cm LA: 3.20 cm 2.0 - 4.0cm %FS: 22.70 cm >25 % LA volume: 37 Mitral Valve Dec Time:236.00 msec Peak E:1.09 m/sec Peak A:.85 m/sec E/A Ratio:1.3 Peak E' Lat Rick:28.1 cm/s Peak E' Med Rick:19.5 cm/s E/E' Lat Ratio:3.9 E/E' Med Ratio:5.6 Tricuspid Valve TV Regurg Peak Grad: 23.00mmHg TV Regurg Peak Rick: 2.40m/sec Updated by Elma Larson on 01/13/2017 10:49:58 AM electronically signed on 01/13/2017 10:50:26 AM with status of Final Wall Motion [place]: 1=Normal, 2=Hypokinesis, 3=Akinesis, 4=Dyskinesis, 5=Aneurysmal, 6=Hyperkinetic, X=Not Visualized (Blank)=Missing
[2017-01-13 11:03] VITALS: BP 121/73
--- NOTE | 2017-01-13 12:45 | Electrocardiograph Report ---
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
--- NOTE | 2017-01-13 12:55 | Electrocardiograph Report ---
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
== END 2017-01-13 13:15 | disposition home or self-care (01) | DRG 917 ==
LOC: ICNU 20:49 → EMEROO 20:49 → SUATTDRO 22:15 → ICNU 22:59 → 2NENU 01-12 05:05
PROVIDERS: ADMIT Internal Medicine; ATTEND Internal Medicine